=== PATIENT | female | born 1930 | race Caucasian/White ===

== ENCOUNTER → 2016-12-12 | Outpatient (CLI) | payer MEDICARE, BC ==
[~2016-12-12] MED LIST: ACTONEL; ACTONEL150 MG PO; B-121000 MCG IM; CALCIUM CARBONA1 TA2 PO; CENTRUM SILVER1 CTB PO; CRANBERRY1 CAP PO; FISH OIL500 MG PO; FLEXERIL 1010 MG/TAB PO; NORCO 325 MG-51 TAB PO; PERCOCET 325 MG1 TA2 PO; ZOFRAN 4MG T4 MG/TAB PO
== END ==
LOC: MC.RAD 12:50
DX: Z12.31 Encounter for screening mammogram for malignant neoplasm of breast (principal)

== ENCOUNTER → 2018-01-08 | Outpatient (CLI) | payer MEDICARE, BC | LOC: MC.RAD 13:00 | DX: Z12.31 Encounter for screening mammogram for malignant neoplasm of breast (principal) ==

== ENCOUNTER 2018-08-16 13:23 | Inpatient (IN) | payer MEDICARE, BC ==
[~2018-08-16] VITALS: Ht 167.6 cm; Wt 66.9 kg
[~2018-08-16 13:23] MED LIST changes: -FISH OIL500 MG PO; +MASON NATURAL1200 MG PO
[2018-08-16 14:29] VITALS: BP 147/69; PULSE 65; TEMP 97.2
[2018-08-16] MEDS ORDERED: PRILOSEC 20MG20 MG PO (15:34)
[2018-08-16] MEDS ORDERED: MONODOX100 PO (15:35)
[2018-08-16] MEDS ORDERED: CEPHALEXIN500 M1 PO (15:35)
[2018-08-16 16:15] LABS: ALBUMIN 3.9 gm/dL (3.5-5.0); BILIRUBIN,TOTAL 0.5 mg/dL (0.0-1.0); CALCIUM 9.2 mg/dL (8.4-10.2); CREATININE, serum 0.75 mg/dL (0.52-1.25); POTASSIUM 4.1 mmol/L (3.4-5.0); TOTAL PROTEIN 7.2 gm/dL (6.4-8.2)
--- NOTE | 2018-08-16 17:51 | NUR ---
Jd (Son) taking home 2 ear rings, 1 ring, 1 wrist watch
--- NOTE | 2018-08-16 18:00 | NUR ---
Pt back from MRI. MD Sam at beside - plan for NPO after midnight. 2 visitors at bedside. Pt stating sharp pain that is at 2/10 at rest - 8/10 intermittantly for short period of time that last about 10 seconds. Call light within reach, dinner ordered, resting in bed comfortably otherwise.
[2018-08-16 19:40] VITALS: BP 99/58; PULSE 75; TEMP 97.9
--- NOTE | 2018-08-16 20:00 | NUR ---
PT IN BED WITH HOB ELEVATED TO 45 DEGREE ANGLE, LEFT FOOT ELEVATED ON A PILLOW. LEFT ANKLE AND FOOT IS RED, SWOLLEN, HOT TO TOUCH, AND HAS ULCER ON INSIDE OF ANKLE AREA. PT ADVISES THAT IT DOES NOT HURT AT THIS TIME. SON VISITING MOTHER. NO FURTHER NEEDS, CALL LIGHT WITHIN REACH AND BED ALARM ON.
[2018-08-16 21:07] LABS: BASO % 0.3 % (0.0-2.0); EOS # 0.1 (0.0-0.7); EOS % 1.6 % (0-4.0); GRAN # 4.4 (1.4-6.5); GRAN % 59.8 % (42.2-75.2); HEMOGLOBIN 11.8 g/dl (12.5-16.0); LYMPH # 1.7 (1.2-3.4); LYMPH % 23.2 % (20.0-51.0); MEAN CELL VOLUME 95 fl (80.0-100.0); MEAN CORPUSCULAR HEMOGLOBIN 33 pg (27.0-31.0); MEAN CORPUSCULAR HGB CONC 34 g/dl (33.0-37.0); MEAN PLATELET VOLUME 9.6 fl (7.4-10.4); MONO # 1.1 (0.1-0.6); PLATELET COUNT 226 K/mm3 (130-400); RED BLOOD COUNT 3.62 M/mm3 (4.10-5.30); REDCELL DISTRIBUTION WIDTH-CV 13.7 % (11.5-14.5)
[2018-08-16 21:11] LABS: HEMATOCRIT 34.5 % (37.0-47.0)
[2018-08-16 23:17] LABS: ERYTHROCYTE SEDIMENTATION RATE 24 mm/hr (0-30)
--- NOTE | 2018-08-16 23:40 | NUR ---
ASSISTED PT TO THE BATHROOM. PT'S GAIT WAS SLOW BUT STEADY. LLE IS STILL SWOLLEN, RED, AND HOT TO TOUCH. PT DENIES PAIN OR DISCOMFORT FROM IT AT THIS TIME. PT IS AWARE THAT SHE WILL BE NPO AFTER MIDNIGHT. PT IS BACK IN BED WITH BED ALARM ON AND CALL LIGHT WITHIN REACH AND NO FURTHER NEEDS.
[2018-08-17] VITALS (7 sets, daily range): BP systolic 107–142; BP diastolic 50–63; PULSE 58–66; TEMP 97.6–98
--- NOTE | 2018-08-17 06:35 | NUR ---
UNEVENTFUL NIGHT, PT SLEPT/RESTED, DENIED PAIN WHEN ASKED DURING THE NIGHT IF SHE HAD ANY. PT DID NOT HAVE PAIN UNTIL ABOUT 0620. PT HAS C/O HEADACHE AND LEFT ANKLE PAIN. PT WAS GIVEN TYLENOL FOR PAIN RATED AT 8/10. PT IS STILL IN BED WITH HOB ELEVATED TO 45 DEGREE ANGLE, A/O X4, LEFT ANKLE STILL RED, SWOLLEN, AND HOT TO TOUCH. PT HAS NO FURTHER NEEDS AND CALL LIGHT IN REACH WITH BED ALARM ON.
--- NOTE | 2018-08-17 08:01 | NUR ---
Patient is in bed, with head elevated. Son is at bedside. Patient states she is ready for the surgeon to see her this morning. Call light is within reach.
[2018-08-17 09:05] LABS: BASO % 0.3 % (0.0-2.0); EOS # 0.2 (0.0-0.7); EOS % 2.8 % (0-4.0); GRAN # 3.7 (1.4-6.5); HEMOGLOBIN 12.1 g/dl (12.5-16.0); LYMPH # 1.2 (1.2-3.4); LYMPH % 20.2 % (20.0-51.0); MEAN CELL VOLUME 96 fl (80.0-100.0); MEAN CORPUSCULAR HEMOGLOBIN 32 pg (27.0-31.0); MEAN CORPUSCULAR HGB CONC 34 g/dl (33.0-37.0); MEAN PLATELET VOLUME 9.8 fl (7.4-10.4); MONO # 0.9 (0.1-0.6); MONO % 14.5 % (1.7-9.3); PLATELET COUNT 233 K/mm3 (130-400); RED BLOOD COUNT 3.73 M/mm3 (4.10-5.30)
[2018-08-17 09:14] LABS: HEMATOCRIT 35.9 % (37.0-47.0)
[2018-08-17 09:15] LABS: CALCIUM 8.4 mg/dL (8.4-10.2); CREATININE, serum 0.64 mg/dL (0.52-1.25); POTASSIUM 4.2 mmol/L (3.4-5.0)
--- NOTE | 2018-08-17 19:12 | NUR ---
Patient sitting up in recliner, finished supper. States is tired and is ready for a rest. Requested pain med prior to going to bed to oncoming nurse. No other needs verbalized. Call light is within reach.
--- NOTE | 2018-08-17 19:52 | NUR ---
Patient getting ready for bed, ambulated with 1 assist from chair to bed. evening medications administered, given NOrco for pain in leg. Left lower extremity wrapped, was debrided earlier today. MIld edema in the left. IV antibiotics adminstered. IV site free of complications, no redness/edema. No further needs at this time.
[2018-08-18 00:57] VITALS: BP 113/48; PULSE 72; TEMP 98
[2018-08-18 04:00] VITALS: BP 149/62; PULSE 70; TEMP 98.3
--- NOTE | 2018-08-18 05:06 | NUR ---
Patient slept most of the night. Only c/o pain at the beginning of the shift. Still recieiving IV antibiotics.
--- NOTE | 2018-08-18 05:22 | NUR ---
Pt c/o back pain, 5/10, sharp and aching. Given norco.
--- NOTE | 2018-08-18 06:52 | NUR ---
Report given to JULIO Stark. Patient reading in bed. No needs at this omega.e
[2018-08-18 08:30] VITALS: BP 96/49; PULSE 65; TEMP 97.8
--- NOTE | 2018-08-18 09:30 | NUR ---
Patient was awake during report. Was excited to report that her leg hasn't felt as good as it does now since the injury occured. Was assisted to the restroom and ambulation has much improved since yesterday. Dr. Vargas was in to see patient and changed the dressing to the leg. Stated he would change it again tomorrow. Patient is wanting to become independent in her room. I have requested that she ring for help so I can observe her balance and gait. She agrees to this and states she will call. Patient is currently sitting up in recliner with foot elevated. Son is in to see patient. Call light is within reach.
--- NOTE | 2018-08-18 09:52 | NUR ---
Patients left foot remains swollen. She states it is less intense and she feels she can move her toes better. The redness has lessened. Still warm to touch in comparison to the previous day. Patient states when foot was touched during assessment it was not painful.
[2018-08-18 12:22] VITALS: BP 133/67; PULSE 59; TEMP 97
--- NOTE | 2018-08-18 12:41 | NUR ---
Patient lives at home with her son (Jd Soto) in [place], [place] and plans to return home upon discharge. Patient is usually independent with daily living activities however, recently she has been using a walker for ambulation due to ankle pain. Patient's primary care physician is Dr. Prosper Loving, her pharmacy is [facility], and she does have advance directives completed and on file. 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 Patient's family is supportive and no further needs at this time. community services coordinator will follow as needed.
[2018-08-18 16:25] VITALS: BP 115/66; PULSE 57; TEMP 97.7
--- NOTE | 2018-08-18 18:01 | NUR ---
Patient up to restroom, and back to recliner. Patient continues to be pain free. Is sitting up in the recliner and ordering supper. All personal items are within reach. Has menu and is ordering supper. Call light is within reach.
[2018-08-18 19:13] VITALS: BP 120/62; PULSE 61; TEMP 98.4
--- NOTE | 2018-08-18 20:20 | NUR ---
Shift assessment complete. Pt resting in bed, awake, a&o, cooperative c cares. Pt reports pain "starting up again" to L ankle as well as pain in R ankle stating "I think I've just been over stressing that one"; pt assisted to reposition at this time, reports may want PRN pain med at HS. Pt denies any other c/o at this time. LLE wrapped per ortho, dressing C/D/I; LLE elevated et ice pack applied per orders. Pt s further needs. Call light in reach, will willieitor.
[2018-08-19 00:05] VITALS: BP 112/57; PULSE 70; TEMP 98.3
[2018-08-19 07:31] VITALS: BP 152/64; PULSE 60; TEMP 97.9
--- NOTE | 2018-08-19 08:02 | NUR ---
Pt AAOx3 out of bed ambulating in room to bathroom with assistance of BEAN DUMPER, then to recliner to eat breakfast. Instructed to call to prevent fall, call light, phone, and all other requested items within reach,.
[2018-08-19 08:18] LABS: BASO % 0.5 % (0.0-2.0); EOS # 0.2 (0.0-0.7); EOS % 2.8 % (0-4.0); GRAN # 3.8 (1.4-6.5); GRAN % 59.9 % (42.2-75.2); HEMATOCRIT 37.4 % (37.0-47.0); HEMOGLOBIN 12.7 g/dl (12.5-16.0); LYMPH # 1.6 (1.2-3.4); LYMPH % 25.1 % (20.0-51.0); MEAN CELL VOLUME 95 fl (80.0-100.0); MEAN CORPUSCULAR HEMOGLOBIN 32 pg (27.0-31.0); MEAN CORPUSCULAR HGB CONC 34 g/dl (33.0-37.0); MEAN PLATELET VOLUME 9.2 fl (7.4-10.4); MONO # 0.7 (0.1-0.6); MONO % 11.4 % (1.7-9.3); PLATELET COUNT 231 K/mm3 (130-400); RED BLOOD COUNT 3.94 M/mm3 (4.10-5.30); REDCELL DISTRIBUTION WIDTH-CV 13.9 % (11.5-14.5)
[2018-08-19 08:38] LABS: CREATININE, serum 0.72 mg/dL (0.52-1.25); POTASSIUM 4.4 mmol/L (3.4-5.0)
--- NOTE | 2018-08-19 09:38 | NUR ---
Initial visit; As Jasmin did physical therapeutic walking, International Trade Teacher visited with her and offered God's blessings.
[2018-08-19 11:42] VITALS: BP 147/64; PULSE 56; TEMP 98
--- NOTE | 2018-08-19 13:29 | NUR ---
The patient is to discharge back home today, 08/19. SW presented and explained the IM form to the patient. The patient verbalized understanding, signed, and she was provided a copy. No additional needs at this time.
--- NOTE | 2018-08-19 14:53 | NUR ---
Follow-up visit; Patient thanked [employer] for looking in on her again when there was a little more time to talk and pray together.
--- NOTE | 2018-08-19 16:10 | NUR ---
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
--- NOTE | 2018-08-19 16:50 | NUR ---
Pt escorted downstairs via wheelchair to private vehicle
== END 2018-08-19 16:40 | disposition home or self-care (01) | DRG 581 ==
LOC: PEDS 13:23 → MEDICAL 13:24
PROVIDERS: Nurse Practitioner Family; Orthopaedic Surgery; ADMIT Internal Medicine
PROC: 0J9R0ZZ Drainage of Left Foot Subcutaneous Tissue and Fascia, Open Approach (ICD-10-PCS; principal; 2018-08-17 10:00)
DX: L03.116 Cellulitis of left lower limb (principal); K21.9 Gastro-esophageal reflux disease without esophagitis; M81.0 Age-related osteoporosis without current pathological fracture; E53.8 Deficiency of other specified B group vitamins; Z88.5 Allergy status to narcotic agent; Z88.8 Allergy status to other drugs, medicaments and biological substances; S90.02XS Contusion of left ankle, sequela; W22.03XS Walked into furniture, sequela
CPT/HCPCS: 99222-AI; 99232-AI; 99233-AI; 99239; A9585; J1100; J1170; J1650; J1885; J2405; J2543; J2704; J3010; J3370; J7030; J7050

== ENCOUNTER 2019-04-29 12:38 | Outpatient (CLI) | payer MEDICARE, BC ==
[~2019-04-29] VITALS: Ht 167.6 cm; Wt 64.7 kg
[~2019-04-29 12:38] MED LIST changes: +CEPHALEXIN500 M1 PO; +MONODOX100 PO; +PRILOSEC 20MG20 MG PO
[2019-04-29] MEDS ORDERED: SINGULAIR 110 MG/TAB PO (13:09)
[2019-04-29] MEDS ORDERED: CALCIUM 600 PLU1 TAB PO (13:10)
[2019-04-29] MEDS ORDERED: GELATIN650 M2 PO (13:10)
[2019-04-29] MEDS ORDERED: METROGEL GEL45 GM TP (13:11)
[2019-04-29] MEDS ORDERED: ASPERCREME1 EACH TP (13:12)
[2019-04-29 14:25] VITALS: BP 112/64; PULSE 52; TEMP 98
== END 2019-04-29 14:33 | disposition home or self-care (01) ==
LOC: EUO 12:38
DX: M81.0 Age-related osteoporosis without current pathological fracture (principal)
CPT/HCPCS: J3489

== ENCOUNTER → 2019-08-25 | Outpatient (CLI) | payer MEDICARE, BC ==
[~2019-08-25] MED LIST changes: +ASPERCREME1 EACH TP; +CALCIUM 600 PLU1 TAB PO; +GELATIN650 M2 PO; +METROGEL GEL45 GM TP; +SINGULAIR 110 MG/TAB PO
== END ==
LOC: COL.RAD 09:16
DX: M51.37 Other intervertebral disc degeneration, lumbosacral region (principal); M43.16 Spondylolisthesis, lumbar region; M81.0 Age-related osteoporosis without current pathological fracture